=== PATIENT | female | born 1985 | race Caucasian/White ===

== ENCOUNTER → 2018-03-21 | Outpatient (CLI) | payer MEDICAID | END | disposition home or self-care (01) | LOC: EDSTATUS 12-22 08:45 → CFH 13:03 → EDSTATUS 13:30 | PROVIDERS: ATTEND Family Medicine | DX: N63.10 Unspecified lump in the right breast, unspecified quadrant (principal); R59.0 Localized enlarged lymph nodes | CPT/HCPCS: 77066 ==

== ENCOUNTER 2018-05-30 12:10 | Day surgery (SDC) | payer MEDICAID ==
[~2018-05-30] VITALS: Ht 167.6 cm; Wt 56.7 kg
[~2018-05-30 12:10] MED LIST: ESTR2TAB PO; IBUP-1222 PO; LACT1CAP35 PO; OXYC10TA6 PO; SCOP1PAT11 TD; SENN1TAB8 PO
[2018-05-30] MEDS ORDERED: LACTATED RINGERS 1,000 ML IV SCH ×2 (12:45→18:17)
[2018-05-30 12:51] VITALS: BP 109/75
[2018-05-30] MEDS ORDERED: FENTANYL PF 100 MCG/2ML ONE ×2 (13:13→17:11)
[2018-05-30] MEDS ORDERED: HYDROmorphone 1 MG/ML, 1ML IV PRN (13:30)
[2018-05-30] MEDS ORDERED: DIPHENHYDRAMINE 50 MG/ML, 1ML IVPush PRN (13:30)
[2018-05-30] MEDS ORDERED: FENTANYL PF 100 MCG/2ML IV PRN (13:30)
[2018-05-30] MEDS ORDERED: LABETALOL 5MG/ML, 20ML IV PRN (13:30)
[2018-05-30] MEDS ORDERED: MEPERIDINE/PF 25MG/0.5ML IVPush PRN (13:30)
[2018-05-30] MEDS ORDERED: PROCHLORPERAZINE 5 MG/ML, 2ML IV PRN (13:30)
[2018-05-30] MEDS ORDERED: OXYcodone 5 MG/5 ML ORAL.SOL UDC PO PRN (13:30)
[2018-05-30] MEDS ORDERED: hydrALAzine 20 MG/ML, 1ML IV PRN (13:30)
[2018-05-30] MEDS ORDERED: HEPARIN 5,000 UNITS/ML, 1ML ONE (13:32)
[2018-05-30] MEDS ORDERED: SODIUM BICARBONATE 1 MEQ/ML, 50ML VIAL ONE (13:32)
[2018-05-30] MEDS ORDERED: LIDOCAINE 1%-EPI 1:100K, 30ML ONE (13:32)
[2018-05-30 13:43] LABS: ANION GAP 8 mmol/L (5-15); CALCIUM 8.9 mg/dL (8.5-10.1); CHLORIDE 110 mmol/L (98-107); CREATININE 1.01 mg/dL (0.55-1.02)
[2018-05-30] MEDS ORDERED: DEXAMETHASONE 4 MG/ML, 1ML ONE (16:10)
[2018-05-30] MEDS ORDERED: ONDANSETRON 2MG/ML, 2ML ONE (16:10)
[2018-05-30] MEDS ORDERED: PROPOFOL 10 MG/ML, 20ML ONE (16:10)
[2018-05-30] MEDS ORDERED: CEFAZOLIN 1,000 MG ONE (16:10)
[2018-05-30] MEDS ORDERED: MEPERIDINE/PF 50 MG/ML ONE (17:11)
[2018-05-30] MEDS ORDERED: OXYcodone 5 MG/5 ML ORAL.SOL UDC ONE (17:12)
[2018-05-30] MEDS ORDERED: HYDROcodone/APAP 5/325 TABLET PO PRN (18:30)
[2018-05-30] MEDS ORDERED: morphine SULFATE 10 MG/ML, 1ML IVPush PRN (18:30)
[2018-05-30] MEDS ORDERED: ONDANSETRON 2MG/ML, 2ML IVPush PRN (18:30)
== END 2018-05-30 20:40 | disposition home or self-care (01) ==
LOC: OUT 12:10 → 4NOR 18:10 → OUT 20:40
PROVIDERS: ATTEND Surgery
DX: I83.811 Varicose veins of right lower extremity with pain (principal); I87.8 Other specified disorders of veins
CPT/HCPCS: 36415; 36475; 37765; 80048; C1888; C1894; J0690; J1100; J1644; J2175; J2405; J2704; J3490; G0378; J3010

== ENCOUNTER → 2018-06-03 | Outpatient (CLI) | payer MEDICAID | END | disposition home or self-care (01) | LOC: CVU 11:46 | PROVIDERS: ATTEND Surgery | DX: I83.811 Varicose veins of right lower extremity with pain (principal); I87.2 Venous insufficiency (chronic) (peripheral) | CPT/HCPCS: 93971 ==